=== PATIENT | male | born 1970 | race Caucasian/White ===

== ENCOUNTER 2022-05-09 18:27 | Emergency (ER) | payer OTHER ==
[~2022-05-09] VITALS: Ht 188 cm; Wt 106.8 kg
[2022-05-09 18:36] VITALS: BP 152/95; PULSE 79; TEMP 98.7
[2022-05-09] MEDS ORDERED: ILOTYCIN5 MG/GM OP ×2 (19:07→19:36)
[2022-05-09] MEDS ORDERED: CLEOCIN HCL300 MG PO ×2 (19:07→19:36)
== END 2022-05-09 19:20 | disposition home or self-care (01) ==
LOC: COL.ER 18:27
DX: H00.022 Hordeolum internum right lower eyelid (principal)